=== PATIENT | male | born 1930 | race African-American/Black ===

== ENCOUNTER 2016-09-06 02:05 | Emergency (ER) | payer OTHER ==
[~2016-09-06] VITALS: Ht 177.8 cm; Wt 68.0 kg
--- NOTE | ~2016-09-06 | EKG ---
[address] [address] [place] [address] ELECTROCARDIOGRAM REPORT Name: JOANIE SOFIA Room #: DEP MELISSA Vincent#: [id number] Admission: 09/06/16 Attend Phys: Discharge: 09/06/16 Date of : 30 Report #: [id number] THIS REPORT FOR: //name// [facility] ED Test Date: 2016-09-06 Test Time: 02:13:04 Pat Name: JOANIE SOFIA Department: Room: Gender: Boom Man: XIOMARA : 1930 Requested By: Miriam Bacon Order Number: [id number] MD: Anival Cardona Measurements Intervals [place] Rate: 91 P: 41 ND: 159 QRS: -18 QRSD: 92 T: 87 QT: 346 QTc: 426 Interpretive Statements Sinus rhythm Borderline left axis deviation Low voltage, extremity leads No previous ECG available for comparison Electronically Signed On 09-06-2016 8:29:36 [employer] by Anival Cardona [email or web address] <ELECTRONICALLY SIGNED> By: Anival Cardona MD 09/06/16 0829 0213 0213 Anival Cardona MD /[email or web address]
[2016-09-06 02:26] LABS: ABSOLUTE NEUTROPHILS 6.7 thou/uL (1.4-8.2); BASOPHILS 0.5 % (0.0-2.0); EOSINOPHILS 1.4 % (0.0-3.0); HEMATOCRIT 41.4 % (42.0-52.0); LYMPHOCYTES 19.1 % (24.0-44.0); MCHC 33.8 % (28.0-37.0); MCV 94.6 fL (80.0-100.0); MONOCYTES 8.3 % (1.0-8.0); PLATELET COUNT 231 thou/uL (150-400); POLYS 70.7 % (36.0-66.0); RBC 4.38 mil/uL (4.50-6.00); RDW 13.5 % (10.5-14.5); WBC 9.5 thou/uL (4.0-11.0)
[2016-09-06 02:36] LABS: ANION GAP 7 mmol/L (7-16); BUN 10 mg/dL (7-18); CALCIUM 9.1 mg/dL (8.5-10.1); CHLORIDE 103 mmol/L (98-107); CO2 30 mmol/L (21-32); CREATININE 0.8 mg/dL (0.6-1.3); GLUCOSE 118 mg/dL (70-99); POTASSIUM 3.7 mmol/L (3.5-5.1); SODIUM 140 mmol/L (136-145)
[2016-09-06 02:39] LABS: MANUAL DIFF NO
[2016-09-06 02:49] LABS: NT-PRO BRAIN NAT PEPTIDE 44 pg/mL (<300); TROPONIN-I < 0.04 ng/mL (<0.04-0.07)
[2016-09-06] MEDS ORDERED: ASPIR 8181 MG PO (03:12)
[2016-09-06] MEDS ORDERED: MAPAP325 MG PO (03:12)
[2016-09-06] MEDS ORDERED: TYLENOL325 MG PO (03:12)
[2016-09-06] MEDS ORDERED: ARICEPT 5 MG TAB5 MG (03:13)
[2016-09-06] MEDS ORDERED: CENTRUM SILVER1 EAC2 PO (03:13)
[2016-09-06] MEDS ORDERED: IPRATROPIUM INH (03:14)
[2016-09-06] MEDS ORDERED: MILK OF MA2400 MG/10 PO (03:15)
[2016-09-06] MEDS ORDERED: CLARITIN10 M2 (03:15)
[2016-09-06] MEDS ORDERED: NORVASC10 MG (03:16)
[2016-09-06] MEDS ORDERED: SINGULAIR 10 MG10 M1 (03:16)
[2016-09-06] MEDS ORDERED: SYMBICORT160 MCG/4. INH (03:17)
[2016-09-06 03:45] VITALS: BP 113/51
== END 2016-09-06 03:47 | disposition home or self-care (01) ==
LOC: ER 02:05
PROVIDERS: Emergency Medicine
DX: R06.00 Dyspnea, unspecified (principal); I10 Essential (primary) hypertension; J45.909 Unspecified asthma, uncomplicated; J44.9 Chronic obstructive pulmonary disease, unspecified; Z87.891 Personal history of nicotine dependence